=== PATIENT | male | born 1950 | race Caucasian/White ===

== ENCOUNTER → 2025-04-15 14:06 | Outpatient (REF) | payer MEDICARE, OTHER, SELFPAY | LOC: HWRAD 14:06 | PROVIDERS: ATTENDING PHYSICIAN Family Medicine | DX: E44.1 Mild protein-calorie malnutrition (principal); Z91.013 Allergy to seafood; R63.4 Abnormal weight loss | CPT/HCPCS: 71046; 74176 ==

== ENCOUNTER → 2025-05-08 12:31 | Outpatient (REF) | payer MEDICARE, OTHER, SELFPAY | LOC: HWRAD 12:31 | PROVIDERS: ATTENDING PHYSICIAN Family Medicine | DX: E04.2 Nontoxic multinodular goiter (principal) | CPT/HCPCS: 76536 ==

== ENCOUNTER → 2025-05-31 13:22 | Outpatient (REF) | payer MEDICARE, OTHER, SELFPAY | LOC: HWRAD 13:22 | PROVIDERS: ATTENDING PHYSICIAN Family Medicine | DX: M81.0 Age-related osteoporosis without current pathological fracture (principal) | CPT/HCPCS: 77080 ==

== ENCOUNTER → 2025-07-17 13:29 | Outpatient (REF) | payer MEDICARE, OTHER, SELFPAY ==
[2025-07-17 13:50] VITALS: BP 170/94; BP_SYST 96
== END ==
LOC: RADI 13:29
PROVIDERS: ATTENDING PHYSICIAN Nurse Practitioner Family; FAMILY PHYSICIAN Family Medicine
DX: E04.1 Nontoxic single thyroid nodule (principal)
CPT/HCPCS: 10005; 88173